=== PATIENT | female | born 1940 | race Caucasian/White ===

== ENCOUNTER 2017-12-01 10:40 | Emergency (ER) | payer OTHER ==
[~2017-12-01] VITALS: Ht 157.5 cm; Wt 45.2 kg
[2017-12-01 12:05] LABS: URINE BILIRUBIN - DIPSTICK NEGATIVE (NEGATIVE); URINE BLOOD DIPSTICK NEGATIVE (NEGATIVE); URINE COLOR YELLOW; URINE GLUCOSE - DIPSTICK NEGATIVE (NEGATIVE); URINE KETONE NEGATIVE (NEGATIVE); URINE LEUK ESTERASE NEGATIVE (NEGATIVE); URINE NITRITE - DIPSTICK NEGATIVE (Negative); URINE PROTEIN - DIPSTICK NEGATIVE (NEG-TRACE); URINE SPECIFIC GRAVITY >=1.030; URINE UROBILINOGEN - DIPSTICK 0.2 E.U./dL (0.2)
[2017-12-01 12:05] LABS: HEMATOCRIT 42.4 % (37.0-47.0); HEMOGLOBIN 14.2 g/dl (12.0-16.0); IMMATURE GRANULOCYTES 0.3 % (0.0-1.0); MEAN CELL VOLUME 93.6 fL CALC (80.0-100.0); MEAN CORPUSCULAR HGB 31.3 pG CALC (26.0-32.0); MEAN CORPUSCULAR HGB CONC 33.5 g/L CALC (32.0-36.0); NEUT# 2.53 thou/uL (2.00-7.15); RED BLOOD COUNT 4.53 mill/uL (4.20-5.60); RED CELL DISTRI WIDTH 14.1 % (11.5-15.5)
[2017-12-01 12:09] LABS: URINE CLARITY CLEAR
[2017-12-01] MEDS ORDERED: DEXILANT60 MG PO (12:12)
[2017-12-01] MEDS ORDERED: ENBREL50 MG/ML SC (12:21)
[2017-12-01] MEDS ORDERED: LUMIGAN0.01 % OU (12:21)
[2017-12-01] MEDS ORDERED: FOLIC ACID5 MG PO (12:23)
[2017-12-01] MEDS ORDERED: VITAMIN D5000 UNIT PO (12:24)
[2017-12-01 12:26] LABS: ALBUMIN 4.6 g/dL (3.2-5.0); ALKALINE PHOSPHATASE 52 u/l (38-126); ANION GAP 14 (6-22 (CALC)); BILIRUBIN, TOTAL 0.7 mg/dL (0.0-1.4); BUN 12 mg/dL (8-23); BUN/CREATININE RATIO 16 (12-20 (CALC)); CARBON DIOXIDE 28 mmol/l (22-30); CHLORIDE 103 mmol/l (95-108); CREATININE 0.7 mg/dL (0.5-1.0); GFR > 60 ML/MIN (>=60 (CALC)); GFR FOR AFR.AMER. > 60 ML/MIN (>=60 (CALC)); LIPASE 222 u/l (23-300); POTASSIUM 3.8 mmol/l (3.5-5.1); SGOT/AST 19 u/l (9-36); SGPT/ALT 24 u/l (11-66); SODIUM 141 mmol/l (137-146); TOTAL PROTEIN 7.1 g/dL (6.3-8.2)
[2017-12-01] MEDS ORDERED: [UNRECOGNIZED DRUG - OTHER] PO (12:29)
[2017-12-01] MEDS ORDERED: MOMETASONE NAB (12:31)
[2017-12-01] MEDS ORDERED: ESTRADIOL TD (12:34)
[2017-12-01 13:23] LABS: C. DIFFICILE TOXIN A&B NEGATIVE (NEGATIVE)
[2017-12-01] MEDS ORDERED: HYOSCYAMINE0.125 M1 SL (13:27)
[2017-12-01] MEDS ORDERED: RANITIDINE 150150 MG PO (13:27)
[2017-12-01 14:09] VITALS: BP 164/87
== END 2017-12-01 14:09 | disposition home or self-care (01) | DRG 392 ==
LOC: ED 10:40
PROVIDERS: Family Medicine
DX: R10.13 Epigastric pain (principal); H40.9 Unspecified glaucoma; M19.90 Unspecified osteoarthritis, unspecified site; K21.9 Gastro-esophageal reflux disease without esophagitis